=== PATIENT | male | born 1950 | race African-American/Black ===

== ENCOUNTER 2018-03-19 17:36 | Emergency (ER) | payer MEDICARE, OTHER ==
[~2018-03-19] VITALS: Ht 172.7 cm; Wt 74.8 kg
[2018-03-19] MEDS ORDERED: LISINOPRIL10 MG PO (17:48)
[2018-03-19] MEDS ORDERED: LOPRESSOR50 PO (17:48)
[2018-03-19 19:46] VITALS: BP 127/65
== END 2018-03-19 19:47 | disposition home or self-care (01) ==
LOC: M.ERS 17:36
DX: S13.8XXA Sprain of joints and ligaments of other parts of neck, initial encounter (principal); I10 Essential (primary) hypertension; V49.9XXA Car occupant (driver) (passenger) injured in unspecified traffic accident, initial encounter; Y93.89 Activity, other specified; Y92.89 Other specified places as the place of occurrence of the external cause; Y99.8 Other external cause status